=== PATIENT | female | born 1970 | race Two or more races ===

== ENCOUNTER 2016-07-12 20:43 | Emergency (ER) | payer OTHER ==
[~2016-07-12] VITALS: Ht 162.6 cm; Wt 80.7 kg
[2016-07-12 21:08] VITALS: BP 149/80
[2016-07-13] MEDS ORDERED: IBUPROFEN 600 MG TAB PO ONE (03:30)
[2016-07-13] MEDS ORDERED: CYCLOBENZAPRINE HCL 10 MG TAB PO ONE (03:30)
== END 2016-07-13 03:50 | disposition home or self-care (01) ==
LOC: ER 20:43 → EDBD 20:43 → ER 07-13 03:50
DX: S61.511A Laceration without foreign body of right wrist, initial encounter (principal); S13.9XXA Sprain of joints and ligaments of unspecified parts of neck, initial encounter; S20.219A Contusion of unspecified front wall of thorax, initial encounter; S40.012A Contusion of left shoulder, initial encounter; R51 Headache; V49.88XA Car occupant (driver) (passenger) injured in other specified transport accidents, initial encounter; Y93.89 Activity, other specified; Y99.8 Other external cause status; Y92.89 Other specified places as the place of occurrence of the external cause
CPT/HCPCS: 70450; 71010; 72125